=== PATIENT | male | born 1960 | race Caucasian/White ===

== ENCOUNTER 2024-11-23 13:38 | Emergency (ER) | payer MEDICARE ==
[2024-11-23 13:49] VITALS: BMI 16.7
[2024-11-23] MEDS ORDERED: ACETAMINOPHEN 325 MG TABLET (FP) ONE (14:01)
[2024-11-23] MEDS: ACETAMINOPHEN 325 MG TABLET (FP) PO ONE (14:10)
[2024-11-23 14:37] LABS: VENOUS BASE EXCESS -7.4 mmol/L (-2-2); VENOUS O2 SATURATION 49.7 % (70-80); VENOUS PCO2 34.9 mmHg (38-52); VENOUS PH 7.324 (7.310-7.410)
[2024-11-23 14:37] LABS: ABSOLUTE IMMATURE GRANULOCYTES 0.03 x10^3/uL (0.0-0.031); BASOPHILS # 0.05 x10^3/uL (0.01-0.08); EOSINOPHIL % 2.3 % (0.8-7.0); EOSINOPHILS # 0.24 x10^3/uL (0.04-0.54); HEMATOCRIT 33.1 % (40.1-51.0); HEMOGLOBIN 10.8 g/dL (13.7-17.5); MCHC 32.6 g/dl (32.3-36.5); MEAN CELL VOLUME 91.7 fl (79.0-92.2); MEAN PLT VOLUME 11.3 fl (9.4-12.4); MONOCYTE % 7.8 % (5.3-12.2); PLATELET COUNT 234 x10^3/uL (163-337); RDW 12.4 % (12.2-16.4)
[2024-11-23 15:32] LABS: CHLORIDE 98 mmol/L (98-107); POTASSIUM 5.3 mmol/L (3.5-5.1); SODIUM 130 mmol/L (136-145)
[2024-11-23 15:34] LABS: ALBUMIN 3.4 g/dl (3.4-5.0); ANION GAP 13 mmol/L (4-13); BLOOD UREA NITROGEN 37.1 mg/dL (7-18); CALCIUM 8.8 mg/dL (8.5-10.1); CO2 19 mmol/L (21-32)
[2024-11-23 15:37] LABS: SGOT/AST 20 U/L (15-37); SGPT/ALT 32 U/L (13-61)
[2024-11-23 15:38] LABS: CREATININE 1.7 mg/dL (0.55-1.3)
[2024-11-23 15:39] LABS: BILIRUBIN,TOTAL 0.3 mg/dL (0.2-1); TOT PROT 7.5 g/dl (6.4-8.2)
[2024-11-23 15:40] LABS: ALK PHOS 93 U/L (45-117)
[2024-11-23] MEDS ORDERED: MORPHINE SULFATE 2 MG/ML SYRINGE ONE ×2 (16:09→17:57)
[2024-11-23] MEDS: morphine CARPU-JECT 2 MG/1 ML DISP.SYRIN IVPUSH ONE ×2 (16:12→18:03)
[2024-11-23 16:15] LABS: GLUCOSE,RANDOM 591 mg/dL (74-106)
[2024-11-23] MEDS: LACTATED RINGERS SOLUTION 1000 ML INFUS.BAG IV ONE (16:35)
[2024-11-23] MEDS ORDERED: INSULIN REGULAR HUMAN 100 UNITS/ML *VIAL SQ ONE (16:46)
[2024-11-23] MEDS ORDERED: INSULIN ASPART SLIDING SCALE (NOVOLOG) 1 VIAL SQ ONE (17:00)
[2024-11-23] MEDS: INSULIN (NOVOLOG) ASPART 100 UNITS/ML 10ML VIAL SQ ONE (17:04)
[2024-11-23 18:04] VITALS: BP 139/70; PULSE 64; RESP 14; TEMP 99
[2024-11-23 23:50] LABS: HCV DIAGNOSTIC IN-HOUSE W/RFLX NON-REACTIVE (NONREACTIVE)
[2024-11-24 17:43] LABS: HIV INTERPRETATION NEGATIVE (NEGATIVE)
== END 2024-11-23 18:12 | disposition short-term general hospital (02) ==
LOC: JER 13:38
PROC: 3E033NZ Introduction of Analgesics, Hypnotics, Sedatives into Peripheral Vein, Percutaneous Approach (ICD-10-PCS; principal; 2024-11-23)
PROC: 3E033NZ Introduction of Analgesics, Hypnotics, Sedatives into Peripheral Vein, Percutaneous Approach (ICD-10-PCS; 2024-11-23)
PROC: 3E013VG Introduction of Insulin into Subcutaneous Tissue, Percutaneous Approach (ICD-10-PCS; 2024-11-23)
DX: S72.402A Unspecified fracture of lower end of left femur, initial encounter for closed fracture (principal); S80.01XA Contusion of right knee, initial encounter; S80.02XA Contusion of left knee, initial encounter; R55 Syncope and collapse; R53.1 Weakness; R42 Dizziness and giddiness; W18.30XA Fall on same level, unspecified, initial encounter
CPT/HCPCS: 36415; 70450-TC; 71046-TC-FY; 72170-TC-FY; 73552-TC-LT-FY; 73562-TC-LT-FY; 73562-TC-RT-FY; 80053; 82803; 82962; 84484; 85025; 86803; 87389; 93005; 93010; 96372; 96374; 96376; 99285-25